=== PATIENT | female | born 1995 | race Caucasian/White ===

== ENCOUNTER 2023-11-07 03:30 | Inpatient (IN) | payer OTHER ==
[2023-11-07] MEDS ORDERED: CITRIC ACID/SODIUM CITRATE 30 ML UNIT-DOSE CUP PO ONE (04:20)
[2023-11-07] MEDS ORDERED: ELECTROLYTE-148 SOLN 500 ML IV ONE (04:20)
[2023-11-07 04:51] VITALS: BMI 26.6
[2023-11-07 04:51] LABS: BASO % 0.8 % (0-2.0); EOS % 1.1 % (0-4.5); HEMATOCRIT 36.3 % (32.4-45.2); HEMOGLOBIN 12.5 GM/dL (10.7-15.3); LYMPH % 25.8 % (8-40); MCH 31.5 pg (25.7-33.7); MCHC 34.4 g/dl (32.0-36.0); MEAN CELL VOLUME 91.5 fl (80-96); MEAN PLT VOLUME 8.2 fl (7.5-11.1); MONO % 6.1 % (3.8-10.2); NEUT % 66.2 % (42.8-82.8); PLATELET COUNT 262 10^3/uL (134-434); RBC 3.97 M/mm3 (3.60-5.2); RDW 13.8 % (11.6-15.6)
[2023-11-07 04:59] LABS: INR 1.04 (0.83-1.09); POTASSIUM 3.6 mmol/L (3.5-5.1); PROTHROMBIN TIME (PATIENT) 12.1 SEC (9.7-13.0)
[2023-11-07] MEDS: ELECTROLYTE-148 SOLN 1,000 ML IV SCH (05:00)
[2023-11-07 05:01] LABS: ACTIVATED PTT 24.6 SECONDS (25.2-36.5); BLOOD UREA NITROGEN 7.4 mg/dL (7-18); CALCIUM 8.6 mg/dL (8.5-10.1)
[2023-11-07 05:05] LABS: CREATININE 0.5 mg/dL (0.55-1.3)
[2023-11-07] MEDS ORDERED: ONDANSETRON 4 MG/2 ML VIAL IVPUSH PRN (05:23)
[2023-11-07] MEDS ORDERED: IBUPROFEN 600 MG TABLET (FP) PO PRN (05:23)
[2023-11-07] MEDS ORDERED: ACETAMINOPHEN 325 MG TABLET (FP) PO PRN (05:23)
[2023-11-07] MEDS ORDERED: OXYTOCIN 30 UNITS in 0.9% NS 30 UNIT/500 ML INFUS.BAG IVPB ONE (05:26)
[2023-11-07] MEDS ORDERED: morphine SULFATE/PF 1 MG/2 ML (2cc Syringe - QUVA) ONE (05:27)
[2023-11-07] MEDS ORDERED: FENTANYL CITRATE/PF 50 MCG/ML VIAL ONE (05:27)
[2023-11-07] MEDS ORDERED: DEXAMETHASONE SOD PHOSPHATE 4 MG/1 ML VIAL ONE (05:38)
[2023-11-07] MEDS ORDERED: ceFAZolin SODIUM 1 GM VIAL ONE ×2 (05:38)
[2023-11-07] MEDS ORDERED: KETOROLAC TROMETHAMINE 30 MG/1 ML VIAL ONE (05:38)
[2023-11-07] MEDS ORDERED: ONDANSETRON 4 MG/2 ML VIAL ONE ×2 (05:38)
[2023-11-07] MEDS ORDERED: OXYTOCIN 20 UNITS in 0.9% NS 20 UNIT/1,000 ML INFUS.BAG IV ONE (07:02)
[2023-11-07] MEDS: OXYTOCIN 20 UNITS in 0.9% NS 20 UNIT/1,000 ML INFUS.BAG IV SCH ×2 (07:05→15:52)
[2023-11-07] MEDS ORDERED: METHYLERGONOVINE MALEATE 0.2 MG/1 ML AMP IM PRN (09:16)
[2023-11-07] MEDS ORDERED: oxyCODONE HCL 5 MG TABLET PO PRN (21:17)
[2023-11-07] MEDS: IBUPROFEN 600 MG TABLET (FP) PO PRN (22:40)
[2023-11-07] MEDS: SIMETHICONE 80 MG TAB.CHEW (FP) PO PRN (22:41)
[2023-11-08] MEDS: SIMETHICONE 80 MG TAB.CHEW (FP) PO PRN ×4 (05:46→20:22)
[2023-11-08] MEDS: IBUPROFEN 600 MG TABLET (FP) PO PRN ×3 (05:46→20:20)
[2023-11-08 08:35] LABS: BASO % 0.7 % (0-2.0); HEMATOCRIT 28.5 % (32.4-45.2); LYMPH % 26.2 % (8-40); MCH 32.4 pg (25.7-33.7); MCHC 35.1 g/dl (32.0-36.0); MEAN CELL VOLUME 92.3 fl (80-96); MEAN PLT VOLUME 8.2 fl (7.5-11.1); MONO % 8.6 % (3.8-10.2); NEUT % 63.5 % (42.8-82.8); PLATELET COUNT 193 10^3/uL (134-434); RBC 3.08 M/mm3 (3.60-5.2); RDW 13.8 % (11.6-15.6); WHITE BLOOD COUNT 11.2 K/mm3 (4.0-10.0)
[2023-11-08] MEDS ORDERED: BISACODYL 10 MG SUPP.RECT RC PRN (09:17)
[2023-11-08] MEDS: ACETAMINOPHEN 325 MG TABLET (FP) PO PRN ×2 (09:49→19:27)
[2023-11-08] MEDS: ENOXAPARIN NA (PORCINE) 40 MG/0.4 ML DISP.SYRIN SQ SCH (09:50)
[2023-11-08] MEDS: FERROUS SO4 325 MG TABLET (FP) PO SCH (21:23)
[2023-11-09] MEDS: SIMETHICONE 80 MG TAB.CHEW (FP) PO PRN ×3 (05:05→21:17)
[2023-11-09] MEDS: IBUPROFEN 600 MG TABLET (FP) PO PRN ×4 (05:05→21:17)
[2023-11-09] MEDS: ACETAMINOPHEN 325 MG TABLET (FP) PO PRN (06:14)
[2023-11-09] MEDS: ENOXAPARIN NA (PORCINE) 40 MG/0.4 ML DISP.SYRIN SQ SCH (09:05)
[2023-11-09] MEDS: FERROUS SO4 325 MG TABLET (FP) PO SCH ×2 (09:05→21:17)
[2023-11-09 09:13] VITALS: RESP 18
[2023-11-09] MEDS: ELECTROLYTE-148 SOLN 1,000 ML IV SCH ×2 (10:29)
[2023-11-09] MEDS: OXYTOCIN 20 UNITS in 0.9% NS 20 UNIT/1,000 ML INFUS.BAG IV SCH (10:30)
[2023-11-09 22:12] VITALS: PULSE 87
[2023-11-10] MEDS: IBUPROFEN 600 MG TABLET (FP) PO PRN (01:40)
[2023-11-10] MEDS: SIMETHICONE 80 MG TAB.CHEW (FP) PO PRN ×2 (01:41→08:10)
[2023-11-10 08:04] LABS: BASO % 0.7 % (0-2.0); EOS % 1.5 % (0-4.5); HEMATOCRIT 30.8 % (32.4-45.2); HEMOGLOBIN 10.5 GM/dL (10.7-15.3); MCH 31.8 pg (25.7-33.7); MCHC 34.1 g/dl (32.0-36.0); MEAN CELL VOLUME 93.2 fl (80-96); MEAN PLT VOLUME 7.4 fl (7.5-11.1); MONO % 5.1 % (3.8-10.2); NEUT % 67.7 % (42.8-82.8); PLATELET COUNT 207 10^3/uL (134-434); WHITE BLOOD COUNT 7.8 K/mm3 (4.0-10.0)
[2023-11-10] MEDS: ACETAMINOPHEN 325 MG TABLET (FP) PO PRN (08:09)
[2023-11-10] MEDS: ENOXAPARIN NA (PORCINE) 40 MG/0.4 ML DISP.SYRIN SQ SCH (09:22)
[2023-11-10] MEDS: FERROUS SO4 325 MG TABLET (FP) PO SCH (09:22)
[2023-11-10] MEDS: ELECTROLYTE-148 SOLN 1,000 ML IV SCH ×2 (09:24)
[2023-11-10 10:11] VITALS: BP 110/62; TEMP 98.3
== END 2023-11-10 12:20 | disposition home or self-care (01) | DRG 540 ==
LOC: JDEL 03:30 → JLDR 04:10 → J3W 09:30
PROVIDERS: ADMIT Obstetrics & Gynecology; ATTEND Obstetrics & Gynecology
PROC: 10D00Z1 Extraction of Products of Conception, Low, Open Approach (ICD-10-PCS; principal; 2023-11-07)
DX: O34.211 Maternal care for low transverse scar from previous cesarean delivery (principal); N85.8 Other specified noninflammatory disorders of uterus; Z3A.38 38 weeks gestation of pregnancy; Z37.0 Single live birth
CPT/HCPCS: 36415; 59025; 80048; 85025; 85610; 85730; 86780; 86850; 86900; 86901